=== PATIENT | male | born 1945 | race Caucasian/White ===

== ENCOUNTER 2020-11-30 21:49 | Emergency (ER) | payer OTHER ==
[~2020-11-30] VITALS: Ht 170.2 cm; Wt 76.3 kg
--- NOTE | 2020-11-30 22:08 | NUR ---
ASSUMED CARE OF PT FROM NIKHIL AYALA. PT RESTING IN [facility], MONITORING IN PLACE, [place]VAR[place] AT THIS TIME, ROSE.
--- NOTE | 2020-11-30 23:15 | NUR ---
LAB AT BEDSIDE TO DRAW BLOOD.
[2020-11-30 23:38] LABS: BASOPHILS % (AUTO) 1 % (0-1); EOSINOPHILS % (AUTO) 2 % (1-7); LYMPHOCYTES % (AUTO) 26 % (22-44); MEAN CORPUSCULAR HGB CONC 33.5 g/dL (33.2-36.2); MEAN PLATELET VOLUME 9.4 fL (7.4-10.4); MONOCYTES % (AUTO) 8 % (2-9); NEUTROPHILS % (AUTO) 63 % (42-75); PLATELET COUNT 213 x10^3/uL (130-400); RED BLOOD COUNT 4.07 x10^6/uL (4.38-5.82); RED CELL DISTRIBUTION WIDTH 15.5 % (9.4-14.8)
[2020-11-30 23:44] LABS: MD NO
[2020-11-30 23:50] LABS: ALBUMIN 3.5 g/dL (3.4-5.0); ANION GAP 5 mmol/L (5-15); CHLORIDE 114 mmol/L (98-107); CREATININE 1.41 mg/dL (0.7-1.3)
[2020-11-30 23:53] LABS: TROPONIN I < 0.015 ng/mL (0.000-0.045)
[2020-11-30 23:59] VITALS: BP 165/92
--- NOTE | 2020-12-01 | NUR ---
PT RESTING IN [facility], MONITORING IN PLACE, SON AT BEDSIDE, NADN AT THIS TIME, ROSE.
[2020-12-01 00:03] LABS: INTERNATIONAL NORMALIZED RATIO 0.96 (0.93-1.1); PROTHROMBIN TIME 10.3 Seconds (9.6-11.5)
[2020-12-01] MEDS ORDERED: RIVAROXABAN 20 MG TABLET ONE (00:41)
[2020-12-01] MEDS ORDERED: RIVAROXABAN 20 MG TABLET PO ONE (01:00)
--- NOTE | 2020-12-01 01:20 | NUR ---
PT AND PT'S SON GIVEN WALKER AND TEACHING. ALSO PROVIDED WITH DISCHARGE EDUCATION AND INSTRUCTIONS. PT WHEELED OUT TO CAR WITH WHEELCHAIR AND SON.
[2020-12-03] MEDS ORDERED: CHOL10003 PO (21:06)
[2020-12-03] MEDS ORDERED: ASCO500C10 PO (21:06)
[2020-12-03] MEDS ORDERED: ACET325C6 PO (21:06)
== END 2020-12-01 01:21 | disposition home or self-care (01) ==
LOC: ED 22:55
DX: I82.441 Acute embolism and thrombosis of right tibial vein (principal); M79.661 Pain in right lower leg; I10 Essential (primary) hypertension; F17.210 Nicotine dependence, cigarettes, uncomplicated
CPT/HCPCS: 36415; 80048; 82040; 83880; 84484; 85025; 85610; 85730; 93970; 99284; 99406

== ENCOUNTER 2021-01-11 12:11 | Inpatient (IN) | payer OTHER ==
[~2021-01-11] VITALS: Ht 167.6 cm; Wt 65.9 kg
[~2021-01-11 12:11] MED LIST: ACET325C6 PO; AMLO5TAB4 PO; ASCO500C10 PO; CEPH500T PO; CHOL10003 PO; RIVA15TA PO; RIVA2.5T PO
--- NOTE | 2021-01-11 12:24 | NUR ---
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 PT DENIES SOB/CP OR PAIN. PT CONNECTED TO MONITORS, CALL LIGHT WITHIN REACH.
[2021-01-11] MEDS ORDERED: SODIUM CHLORIDE FLUSH 10ML SYR IVF ONE (13:00)
--- NOTE | 2021-01-11 13:12 | NUR ---
PT HAS BEEN ANSWERING QUESTIONS, AX0 TO SELF. FOLLOWS COMMANDS. ANNE DRAINING TO GRAVITY, PT TOLERATED PROCEDURE WELL. LAXMI CARE PROVIDED
[2021-01-11 13:17] LABS: MICROSCOPIC INDICATED
[2021-01-11 13:22] LABS: AMPHETAMINE SCREEN, URINE Negative (Negative); BARBITURATE SCREEN, URINE Negative (Negative); BENZODIAZEPINE SCREEN, URINE Negative (Negative); CANNABINOID SCREEN, URINE Negative (Negative); COCAINE SCREEN, URINE Negative (Negative); METHADONE SCREEN, URINE Negative (Negative); OPIATE SCREEN, URINE Negative (Negative)
[2021-01-11 13:45] LABS: BASOPHILS % (AUTO) 0 % (0-1); EOSINOPHILS % (AUTO) 0 % (1-7); LYMPHOCYTES % (AUTO) 4 % (22-44); MEAN CORPUSCULAR HEMOGLOBIN 30.8 pg (27.5-34.5); MEAN CORPUSCULAR HGB CONC 32.6 g/dL (33.2-36.2); MEAN PLATELET VOLUME 10.6 fL (7.4-10.4); MONOCYTES % (AUTO) 4 % (2-9); NEUTROPHILS % (AUTO) 92 % (42-75); PLATELET COUNT 127 x10^3/uL (130-400); RED BLOOD COUNT 3.28 x10^6/uL (4.38-5.82); RED CELL DISTRIBUTION WIDTH 16.5 % (9.4-14.8)
--- NOTE | 2021-01-11 13:53 | NUR ---
HAWA TRIVEDI: [phone] Addendum: 01/11/21 at 1647 by [email or web address] HAWA TRIVEDI/TAMICA TRIVEDI: [phone] - [place] ([employer])
[2021-01-11 14:01] LABS: ALANINE AMINOTRANSFERASE 208 U/L (12-78); ALBUMIN 3.4 g/dL (3.4-5.0); ANION GAP 5 mmol/L (5-15); CALCIUM 10.1 mg/dL (8.5-10.1); CHLORIDE 116 mmol/L (98-107); CREATININE 1.38 mg/dL (0.7-1.3); INTERNATIONAL NORMALIZED RATIO 1.04 (0.93-1.1); PROTHROMBIN TIME 11.1 Seconds (9.6-11.5)
[2021-01-11 14:12] LABS: ALKALINE PHOSPHATASE 247 U/L (45-117); BILIRUBIN,TOTAL 0.2 mg/dL (0.2-1.0); TOTAL PROTEIN 7.5 g/dL (6.4-8.2)
[2021-01-11] MEDS ORDERED: DEXTROSE 50%, 50ML SYRINGE ONE ×3 (14:49→19:04)
[2021-01-11] MEDS ORDERED: CEFTRIAXONE 1,000 MG in DEXTROSE 5% 50 ML IVPB ONE (15:00)
[2021-01-11] MEDS ORDERED: DEXTROSE 50%, 50ML SYRINGE IVPush ONE (15:00)
--- NOTE | 2021-01-11 15:05 | NUR ---
PT TO CT
--- NOTE | 2021-01-11 15:32 | NUR ---
PT BACK FROM CT
--- NOTE | 2021-01-11 15:36 | NUR ---
PT LAYING ON GURNEY, WARMING BLANKET IN PLACE. MONITORS IN PLACE. ANNE DRAINING TO GRAVITY. PT DENIES PAIN. CALL LIGHT WITHIN REACH
[2021-01-11] MEDS ORDERED: TAMS-11 PO (15:53)
[2021-01-11] MEDS ORDERED: AMLO-150 PO (16:02)
[2021-01-11] MEDS ORDERED: DEXTROSE 5% 1,000 ML IV ONE (16:30)
[2021-01-11] MEDS ORDERED: D5%-0.9% NACL 1,000 ML IV SCH (16:30)
--- NOTE | 2021-01-11 16:40 | NUR ---
PT CONTINUES LAYING ON [place]VAR[place]O MARIA/SUSANNAH. WARMING MEASURES AND MONITORS IN PLACE. CALL LIGHT WITHIN REACH. PT DENIES PAIN
[2021-01-11] MEDS ORDERED: POLYETHYLENE GLYCOL 17 GM PACKET PO PRN (17:00)
[2021-01-11] MEDS ORDERED: BISACODYL 10 MG SUPP PR PRN (17:00)
[2021-01-11] MEDS ORDERED: hydrALAzine 20 MG/ML, 1ML IVPush PRN (17:00)
[2021-01-11] MEDS ORDERED: DEXTROSE 5% 1,000 ML IV SCH (17:00)
[2021-01-11] MEDS ORDERED: GLUCAGON 1 MG IM PRN (17:00)
[2021-01-11] MEDS ORDERED: ONDANSETRON ODT 4 MG PO PRN (17:00)
[2021-01-11] MEDS ORDERED: DEXTROSE 4 GM TAB.CHEW PO PRN (17:00)
[2021-01-11] MEDS ORDERED: ONDANSETRON 2MG/ML, 2ML IVPush PRN (17:00)
[2021-01-11] MEDS ORDERED: LABETALOL 5MG/ML, 20ML IVPush PRN (17:00)
[2021-01-11] MEDS: DEXTROSE 50%, 50ML SYRINGE IVPush PRN ×3 (17:41→21:02)
--- NOTE | 2021-01-11 17:44 | NUR ---
US CAME TO BS, WILL COMPLETE AFTER PT TRANSFERRED TO FLOOR FOR EASIER ACCESS TO SITE
--- NOTE | 2021-01-11 18:02 | NUR ---
[facility] ([facility]) NOTIFIED OF RECENT POC BG & ADMIN OF PRN D50, PER [facility]: PT OK TO TRANSFER WITH ANNE CATH REMAINING IN PLACE & OK TO REMOVE BEARPAW WARMER FOR TRANSPORT.
[2021-01-11 18:07] LABS: ANION GAP 5 mmol/L (5-15); CALCIUM 9.5 mg/dL (8.5-10.1); CHLORIDE 118 mmol/L (98-107); CREATININE 1.39 mg/dL (0.7-1.3)
[2021-01-11 18:11] LABS: TROPONIN I < 0.015 ng/mL (0.000-0.045)
--- NOTE | 2021-01-11 18:19 | NUR ---
Pt to be admitted to [facility], room 484-2. Report called to JANET.
[2021-01-11 18:55] VITALS: BP 111/59
[2021-01-11 20:21] VITALS: BP 102/63
[2021-01-11] MEDS: SODIUM CHLORIDE FLUSH 10ML SYR IVF SCH (21:01)
[2021-01-11 23:39] LABS: TROPONIN I < 0.015 ng/mL (0.000-0.045)
[2021-01-12 02:03] VITALS: BP 104/59
[2021-01-12] MEDS ORDERED: D5%-0.9% NACL 1,000 ML IV SCH (02:30)
[2021-01-12 05:02] LABS: BASOPHILS % (AUTO) 1 % (0-1); EOSINOPHILS % (AUTO) 0 % (1-7); LYMPHOCYTES % (AUTO) 8 % (22-44); MEAN CORPUSCULAR HEMOGLOBIN 31.8 pg (27.5-34.5); MEAN PLATELET VOLUME 10.6 fL (7.4-10.4); MONOCYTES % (AUTO) 8 % (2-9); NEUTROPHILS % (AUTO) 84 % (42-75); PLATELET COUNT 102 x10^3/uL (130-400); RED BLOOD COUNT 2.66 x10^6/uL (4.38-5.82); RED CELL DISTRIBUTION WIDTH 16.4 % (9.4-14.8)
[2021-01-12 05:13] LABS: CHLORIDE 122 mmol/L (98-107)
[2021-01-12 05:20] LABS: ALANINE AMINOTRANSFERASE 140 U/L (12-78); ALBUMIN 2.6 g/dL (3.4-5.0); ALKALINE PHOSPHATASE 182 U/L (45-117); ANION GAP 3 mmol/L (5-15); BILIRUBIN,TOTAL 0.2 mg/dL (0.2-1.0); CALCIUM 9.1 mg/dL (8.5-10.1); CREATININE 1.49 mg/dL (0.7-1.3); TOTAL PROTEIN 6.1 g/dL (6.4-8.2)
[2021-01-12 07:27] VITALS: BP 99/56
[2021-01-12] MEDS: DEXTROSE 5% 1,000 ML IV SCH ×2 (08:20→17:10)
[2021-01-12] MEDS: CEFTRIAXONE 2 GM in DEXTROSE 5% 50 ML IVPB SCH (08:20)
[2021-01-12] MEDS: SODIUM CHLORIDE FLUSH 10ML SYR IVF SCH ×2 (08:21→21:07)
[2021-01-12] MEDS: SENNA/DOCUSATE TABLET PO SCH (09:00)
[2021-01-12 12:10] VITALS: BP 118/69
[2021-01-12] MEDS ORDERED: CEFTRIAXONE 1,000 MG in DEXTROSE 5% 50 ML IVPB SCH (14:00)
[2021-01-12 18:27] VITALS: BP 120/68
[2021-01-13 00:23] VITALS: BP 139/76
[2021-01-13] MEDS: DEXTROSE 5% 1,000 ML IV SCH (01:31)
[2021-01-13 06:02] LABS: BASOPHILS % (AUTO) 0 % (0-1); EOSINOPHILS % (AUTO) 1 % (1-7); LYMPHOCYTES % (AUTO) 15 % (22-44); MEAN CORPUSCULAR HEMOGLOBIN 31.3 pg (27.5-34.5); MEAN CORPUSCULAR HGB CONC 33.3 g/dL (33.2-36.2); MONOCYTES % (AUTO) 9 % (2-9); NEUTROPHILS % (AUTO) 74 % (42-75); PLATELET COUNT 84 x10^3/uL (130-400); RED BLOOD COUNT 2.63 x10^6/uL (4.38-5.82)
[2021-01-13 06:04] LABS: ALANINE AMINOTRANSFERASE 149 U/L (12-78); ALBUMIN 2.5 g/dL (3.4-5.0); ANION GAP 6 mmol/L (5-15); CALCIUM 9.1 mg/dL (8.5-10.1); CHLORIDE 116 mmol/L (98-107)
[2021-01-13 06:07] LABS: ALKALINE PHOSPHATASE 190 U/L (45-117); BILIRUBIN,TOTAL 0.2 mg/dL (0.2-1.0); CREATININE 1.44 mg/dL (0.7-1.3); TOTAL PROTEIN 5.9 g/dL (6.4-8.2)
[2021-01-13 06:35] VITALS: BP 133/71
[2021-01-13] MEDS: CEFTRIAXONE 2 GM in DEXTROSE 5% 50 ML IVPB SCH (08:06)
[2021-01-13] MEDS: SODIUM CHLORIDE FLUSH 10ML SYR IVF SCH ×2 (08:06→21:00)
[2021-01-13] MEDS: SENNA/DOCUSATE TABLET PO SCH (08:07)
[2021-01-13 12:09] VITALS: BP 133/77
[2021-01-13 19:08] VITALS: BP 131/72
[2021-01-14 00:12] VITALS: BP 147/78
[2021-01-14 04:54] LABS: MEAN CORPUSCULAR HEMOGLOBIN 31.8 pg (27.5-34.5); MEAN PLATELET VOLUME 10.4 fL (7.4-10.4); PLATELET COUNT 101 x10^3/uL (130-400); RED BLOOD COUNT 2.71 x10^6/uL (4.38-5.82); RED CELL DISTRIBUTION WIDTH 15.8 % (9.4-14.8)
[2021-01-14 05:06] LABS: ALBUMIN 2.7 g/dL (3.4-5.0); ANION GAP 7 mmol/L (5-15); CALCIUM 9.6 mg/dL (8.5-10.1); CHLORIDE 112 mmol/L (98-107)
[2021-01-14 05:09] LABS: ALANINE AMINOTRANSFERASE 141 U/L (12-78); ALKALINE PHOSPHATASE 215 U/L (45-117); BILIRUBIN,TOTAL 0.3 mg/dL (0.2-1.0); CREATININE 1.34 mg/dL (0.7-1.3); TOTAL PROTEIN 6.4 g/dL (6.4-8.2)
[2021-01-14 05:39] LABS: ANISOCYTOSIS 1+; BAND#(MANUAL) 0.29 x10^3/uL; BANDS%(MANUAL) 4 % (0-7); HYPOCHROMIA 1+; LYMPH#(MANUAL) 0.86 x10^3/uL (1-3.4); LYMPHS% (MANUAL) 12 % (22-44); MONOS% (MANUAL) 7 % (2-9); POLYCHROMASIA 1+; SEG#(MANUAL) 5.54 x10^3/uL (1.8-6.8); SEGS% (MANUAL) 77 % (42-75)
[2021-01-14 05:40] LABS: <PLATELET ESTIMATE> DECREASED; <PLT MORPHOLOGY> NORMAL PLT MORPH; OVALOCYTES 1+
[2021-01-14 06:26] VITALS: BP 157/84
[2021-01-14] MEDS: DEXTROSE 5% 1,000 ML IV SCH (08:34)
[2021-01-14] MEDS: SENNA/DOCUSATE TABLET PO SCH (08:35)
[2021-01-14] MEDS: CEFTRIAXONE 2 GM in DEXTROSE 5% 50 ML IVPB SCH (08:35)
[2021-01-14] MEDS: SODIUM CHLORIDE FLUSH 10ML SYR IVF SCH ×2 (08:35→21:00)
[2021-01-14 12:08] VITALS: BP 142/88
[2021-01-14] MEDS: TAMSULOSIN 0.4 MG CAP.ER.24H PO SCH (12:45)
[2021-01-14] MEDS: AMLODIPINE 5 MG TABLET PO SCH (12:45)
[2021-01-14] MEDS: ACETAMINOPHEN 325 MG TABLET PO PRN (12:45)
[2021-01-14 19:23] VITALS: BP 139/77
[2021-01-15 01:07] VITALS: BP 138/60
[2021-01-15] MEDS: DEXTROSE 5% 1,000 ML IV SCH (05:41)
[2021-01-15 05:50] LABS: MEAN CORPUSCULAR HEMOGLOBIN 31.3 pg (27.5-34.5); MEAN CORPUSCULAR HGB CONC 33.7 g/dL (33.2-36.2); MEAN PLATELET VOLUME 10.4 fL (7.4-10.4); PLATELET COUNT 118 x10^3/uL (130-400); RED CELL DISTRIBUTION WIDTH 15.8 % (9.4-14.8)
[2021-01-15 06:05] LABS: CHLORIDE 113 mmol/L (98-107)
[2021-01-15 06:17] LABS: ALANINE AMINOTRANSFERASE 113 U/L (12-78); ALBUMIN 2.8 g/dL (3.4-5.0); ALKALINE PHOSPHATASE 214 U/L (45-117); ANION GAP 7 mmol/L (5-15); BILIRUBIN,TOTAL 0.3 mg/dL (0.2-1.0); CALCIUM 9.5 mg/dL (8.5-10.1); CREATININE 1.43 mg/dL (0.7-1.3); TOTAL PROTEIN 6.6 g/dL (6.4-8.2)
[2021-01-15 06:31] LABS: BAND#(MANUAL) 0.57 x10^3/uL; BANDS%(MANUAL) 7 % (0-7); EOS#(MANUAL) 0.24 x10^3/uL (0.0-0.4); EOS% (MANUAL) 3 % (1-7); LYMPH#(MANUAL) 0.65 x10^3/uL (1-3.4); LYMPHS% (MANUAL) 8 % (22-44); MONOS#(MANUAL) 0.24 x10^3/uL (0.3-2.7); MONOS% (MANUAL) 3 % (2-9); SEGS% (MANUAL) 79 % (42-75)
[2021-01-15 06:32] LABS: ANISOCYTOSIS 1+; OVALOCYTES 1+; TARGET CELLS 1+
[2021-01-15 06:33] LABS: <PLATELET ESTIMATE> DECREASED; <PLT MORPHOLOGY> NORMAL PLT MORPH
[2021-01-15 06:35] VITALS: BP 120/67
[2021-01-15] MEDS: CEFTRIAXONE 2 GM in DEXTROSE 5% 50 ML IVPB SCH (08:03)
[2021-01-15] MEDS: ACETAMINOPHEN 325 MG TABLET PO PRN (08:04)
[2021-01-15] MEDS: SENNA/DOCUSATE TABLET PO SCH (08:04)
[2021-01-15] MEDS: AMLODIPINE 5 MG TABLET PO SCH (08:04)
[2021-01-15] MEDS: SODIUM CHLORIDE FLUSH 10ML SYR IVF SCH ×2 (08:04→21:00)
[2021-01-15] MEDS: TAMSULOSIN 0.4 MG CAP.ER.24H PO SCH (08:10)
[2021-01-15 10:24] VITALS: BP 128/70
[2021-01-15] MEDS ORDERED: THIAMINE 100 MG in SODIUM CHLORIDE 0.9% 50 ML IV SCH (11:30)
[2021-01-15] MEDS ORDERED: LORazepam 2 MG/ML, 1ML IVPush ONE ×2 (12:00→21:00)
[2021-01-15] MEDS ORDERED: LORazepam 2 MG/ML, 1ML ONE ×2 (12:02→20:50)
[2021-01-15 12:32] VITALS: BP 122/68
[2021-01-15] MEDS ORDERED: GADOTERATE 7.5 MMOL/15ML SYR ONE (18:07)
[2021-01-15 19:24] VITALS: BP 144/73
[2021-01-15] MEDS ORDERED: PHARMACOKINETIC MONITORING MC PRN (20:30)
[2021-01-15] MEDS ORDERED: PHARMACY MAY ADJ FOR RENAL FX MC PRN (20:30)
[2021-01-15] MEDS ORDERED: VANCOMYCIN PER PHARMACY MC PRN (20:30)
[2021-01-15] MEDS ORDERED: LORazepam 1MG TABLET ONE (20:48)
[2021-01-15] MEDS ORDERED: VANCOMYCIN 1,800 MG in SODIUM CHLORIDE 0.9% 250 ML IV ONE (21:00)
[2021-01-15] MEDS ORDERED: LORazepam 1MG TABLET PO PRN (21:00)
[2021-01-15] MEDS ORDERED: GADOTERATE 10 MMOL/20ML SYR ONE (22:37)
[2021-01-16 00:33] VITALS: BP 101/60
[2021-01-16] MEDS ORDERED: DEXAMETHASONE 4 MG/ML, 1ML IVPush ONE (01:00)
[2021-01-16] MEDS: AMPICILLIN/SULBACTAM 3 GM in SODIUM CHLORIDE 0.9% 100 ML IV SCH ×2 (01:22→07:30)
[2021-01-16 05:43] LABS: MEAN CORPUSCULAR HEMOGLOBIN 31.7 pg (27.5-34.5); MEAN CORPUSCULAR HGB CONC 33.6 g/dL (33.2-36.2); MEAN PLATELET VOLUME 10.4 fL (7.4-10.4); PLATELET COUNT 116 x10^3/uL (130-400); RED BLOOD COUNT 2.56 x10^6/uL (4.38-5.82); RED CELL DISTRIBUTION WIDTH 15.7 % (9.4-14.8)
[2021-01-16] MEDS ORDERED: BUPIVACAINE/PF 0.5% ONE (05:46)
[2021-01-16] MEDS ORDERED: BACITRACIN 50,000 UNIT ONE (05:46)
[2021-01-16] MEDS ORDERED: EPINEPHRINE 1 MG/ML, 1ML ONE (05:46)
[2021-01-16 05:58] LABS: CHLORIDE 112 mmol/L (98-107)
[2021-01-16 06:06] LABS: ALANINE AMINOTRANSFERASE 91 U/L (12-78); ALBUMIN 2.5 g/dL (3.4-5.0); ALKALINE PHOSPHATASE 188 U/L (45-117); ANION GAP 7 mmol/L (5-15); BILIRUBIN,TOTAL 0.3 mg/dL (0.2-1.0); CREATININE 1.18 mg/dL (0.7-1.3)
[2021-01-16] MEDS ORDERED: FENTANYL PF 250 MCG/5ML ONE (06:14)
[2021-01-16 06:16] LABS: BAND#(MANUAL) 0.89 x10^3/uL; BANDS%(MANUAL) 10 % (0-7); EOS#(MANUAL) 0.09 x10^3/uL (0.0-0.4); EOS% (MANUAL) 1 % (1-7); LYMPH#(MANUAL) 0.98 x10^3/uL (1-3.4); LYMPHS% (MANUAL) 11 % (22-44); MONOS#(MANUAL) 0.09 x10^3/uL (0.3-2.7); MONOS% (MANUAL) 1 % (2-9); MYELOCYTES# (MANUAL) 0.09 x10^3/uL (0-0); MYELOCYTES% (MANUAL) 1 % (0-0); SEG#(MANUAL) 6.76 x10^3/uL (1.8-6.8); SEGS% (MANUAL) 76 % (42-75)
[2021-01-16 06:17] LABS: <PLATELET ESTIMATE> DECREASED; <PLT MORPHOLOGY> NORMAL PLT MORPH; ANISOCYTOSIS 1+; HYPOCHROMIA 1+; OVALOCYTES 1+; TARGET CELLS 1+
[2021-01-16] MEDS ORDERED: BUPIVACAINE/PF 0.5% INFIL ONE (06:53)
[2021-01-16] MEDS ORDERED: PROPOFOL 10 MG/ML, 20ML ONE (06:54)
[2021-01-16] MEDS ORDERED: ONDANSETRON 2MG/ML, 2ML ONE ×2 (06:54→07:12)
[2021-01-16] MEDS ORDERED: ROCURONIUM 10MG/ML,5ML ONE ×2 (06:54)
[2021-01-16] MEDS ORDERED: DEXAMETHASONE 4 MG/ML, 1ML ONE ×2 (06:54)
[2021-01-16] MEDS ORDERED: PHENYLEPHRINE 10 MG/ML ONE (07:12)
[2021-01-16] MEDS ORDERED: NEOSTIGMINE 1 MG/ML, 10ML ONE ×2 (07:21)
[2021-01-16] MEDS ORDERED: GLYCOPYRROLATE 0.2MG/1ML, 5ML ONE (07:22)
[2021-01-16] MEDS ORDERED: VANCOMYCIN 1,000 MG ONE (07:35)
[2021-01-16] MEDS ORDERED: BACITRACIN OINT 500U/GM, 15 GM ONE (07:35)
[2021-01-16] MEDS ORDERED: SUGAMMADEX 200 MG/2 ML IVPush ONE (08:16)
[2021-01-16] MEDS ORDERED: HYDROmorphone 1 MG/ML, 1ML INJ IVPush PRN (08:30)
[2021-01-16] MEDS ORDERED: LABETALOL 5MG/ML, 20ML IV PRN (08:30)
[2021-01-16] MEDS ORDERED: PROMETHAZINE 25 MG/ML, 1ML IVPush PRN (08:30)
[2021-01-16] MEDS ORDERED: ONDANSETRON 2MG/ML, 2ML IVPush PRN (08:30)
[2021-01-16] MEDS ORDERED: OXYcodone 5 MG/5 ML ORAL.SOL UDC PO PRN (08:30)
[2021-01-16] MEDS ORDERED: ACETAMINOPHEN 325 MG TABLET PO PRN (08:30)
[2021-01-16] MEDS ORDERED: FENTANYL PF 100 MCG/2ML IV PRN (08:30)
[2021-01-16] MEDS ORDERED: hydrALAzine 20 MG/ML, 1ML IV PRN (08:30)
[2021-01-16] MEDS ORDERED: EPHEDRINE 50 MG/ML, 1ML IVPush PRN (08:30)
[2021-01-16] MEDS ORDERED: PHENYLEPHRINE 50 MG in SODIUM CHLORIDE 0.9% 245 ML IV PRN (09:00)
[2021-01-16] MEDS: AMLODIPINE 5 MG TABLET PO SCH (09:00)
[2021-01-16] MEDS: TAMSULOSIN 0.4 MG CAP.ER.24H PO SCH (11:57)
[2021-01-16] MEDS: THIAMINE 100 MG in DEXTROSE 5% 50 ML IV SCH (11:57)
[2021-01-16] MEDS: SENNA/DOCUSATE TABLET PO SCH (11:58)
[2021-01-16] MEDS: SODIUM CHLORIDE FLUSH 10ML SYR IVF SCH ×4 (11:58→21:00)
[2021-01-16] MEDS ORDERED: ATROPINE SYRINGE 0.1 MG/ML, 10ML ONE (11:59)
[2021-01-16] MEDS ORDERED: OXYcodone/APAP 5/325MG TABLET PO PRN (12:00)
[2021-01-16] MEDS ORDERED: DEXTROSE 50%, 50ML SYRINGE IVPush PRN (12:00)
[2021-01-16] MEDS ORDERED: MAGNESIUM HYDROXIDE 8%, 30ML UDC PO PRN (12:00)
[2021-01-16] MEDS ORDERED: DEXTROSE 4 GM TAB.CHEW PO PRN (12:00)
[2021-01-16] MEDS ORDERED: ACETAMINOPHEN 650 MG SUPP PR PRN (12:00)
[2021-01-16] MEDS ORDERED: DIPHENHYDRAMINE 50 MG/ML, 1ML IM PRN (12:00)
[2021-01-16] MEDS: LABETALOL 5MG/ML, 20ML IV SCH ×2 (12:00→20:00)
[2021-01-16] MEDS ORDERED: ONDANSETRON 2MG/ML, 2ML IV PRN (12:00)
[2021-01-16] MEDS ORDERED: GLUCAGON 1 MG IM PRN (12:00)
[2021-01-16] MEDS ORDERED: BISACODYL 10 MG SUPP PR PRN (12:00)
[2021-01-16] MEDS ORDERED: CEFAZOLIN 2,000 MG in SODIUM CHLORIDE 0.9% 50 ML IV SCH (12:00)
[2021-01-16] MEDS ORDERED: VANCOMYCIN PER PHARMACY MC SCH (12:00)
[2021-01-16] MEDS ORDERED: DIPHENHYDRAMINE 50 MG/ML, 1ML IV PRN (12:00)
[2021-01-16] MEDS: D5%-0.9% NACL+KCL 20MEQ 1,000 ML IV SCH ×2 (12:19→16:00)
[2021-01-16] MEDS ORDERED: HYDROmorphone 2 MG/ML, 1ML IV PRN (12:30)
[2021-01-16] MEDS ORDERED: METHOCARBAMOL 1,000 MG in DEXTROSE 5% 100 ML IV PRN (12:30)
[2021-01-16] MEDS: CEFAZOLIN 2,000 MG in SODIUM CHLORIDE 0.9% 50 ML IV SCH ×2 (12:31→20:35)
[2021-01-16] MEDS: PHENYLEPHRINE 50 MG in SODIUM CHLORIDE 0.9% 245 ML IV PRN (17:14)
[2021-01-16] MEDS: HYDROcodone/APAP 5/325 TABLET PO PRN (20:41)
[2021-01-16] MEDS ORDERED: VANCOMYCIN 1,400 MG in SODIUM CHLORIDE 0.9% 250 ML IV SCH (21:00)
[2021-01-17] MEDS: D5%-0.9% NACL+KCL 20MEQ 1,000 ML IV SCH ×2 (02:14→14:40)
[2021-01-17] MEDS ORDERED: VANCOMYCIN 1,400 MG in SODIUM CHLORIDE 0.9% 250 ML IV SCH (03:00)
[2021-01-17] MEDS: LABETALOL 5MG/ML, 20ML IV SCH (04:00)
[2021-01-17] MEDS: CEFAZOLIN 2,000 MG in SODIUM CHLORIDE 0.9% 50 ML IV SCH ×3 (04:24→20:18)
[2021-01-17] MEDS: PHENYLEPHRINE 50 MG in SODIUM CHLORIDE 0.9% 245 ML IV PRN ×2 (04:24→11:54)
[2021-01-17] MEDS: HYDROcodone/APAP 5/325 TABLET PO PRN ×2 (04:43→20:34)
[2021-01-17 04:53] LABS: CHLORIDE 113 mmol/L (98-107)
[2021-01-17 04:59] LABS: ALANINE AMINOTRANSFERASE 55 U/L (12-78); ALBUMIN 2.3 g/dL (3.4-5.0); ALKALINE PHOSPHATASE 154 U/L (45-117); ANION GAP 6 mmol/L (5-15); BILIRUBIN,TOTAL 0.1 mg/dL (0.2-1.0); CALCIUM 8.4 mg/dL (8.5-10.1); CREATININE 1.34 mg/dL (0.7-1.3); TOTAL PROTEIN 5.3 g/dL (6.4-8.2)
[2021-01-17 05:36] LABS: MEAN CORPUSCULAR HEMOGLOBIN 30.8 pg (27.5-34.5); MEAN CORPUSCULAR HGB CONC 32.8 g/dL (33.2-36.2); MEAN PLATELET VOLUME 11.5 fL (7.4-10.4); PLATELET COUNT 150 x10^3/uL (130-400); RED BLOOD COUNT 2.18 x10^6/uL (4.38-5.82); RED CELL DISTRIBUTION WIDTH 16.1 % (9.4-14.8)
[2021-01-17 06:19] LABS: BAND#(MANUAL) 2.26 x10^3/uL; BANDS%(MANUAL) 17 % (0-7); LYMPH#(MANUAL) 0.53 x10^3/uL (1-3.4); LYMPHS% (MANUAL) 4 % (22-44); METAMYELOCYTES# (MANUAL) 0.13 x10^3/uL (0-0); METAMYELOCYTES% (MANUAL) 1 % (0-1); MONOS#(MANUAL) 0.67 x10^3/uL (0.3-2.7); MONOS% (MANUAL) 5 % (2-9); SEG#(MANUAL) 9.71 x10^3/uL (1.8-6.8); SEGS% (MANUAL) 73 % (42-75)
[2021-01-17 06:23] LABS: ANISOCYTOSIS 1+; HYPOCHROMIA 1+
[2021-01-17 06:25] LABS: OVALOCYTES 1+
[2021-01-17 06:26] LABS: <PLATELET ESTIMATE> ADEQUATE; <PLT MORPHOLOGY> NORMAL PLT MORPH
[2021-01-17] MEDS ORDERED: ENOXAPARIN 40 MG/0.4 ML SQ SCH (08:00)
[2021-01-17] MEDS ORDERED: COSYNTROPIN 0.25 MG IV ONE (08:05)
[2021-01-17] MEDS: SENNA/DOCUSATE TABLET PO SCH (09:00)
[2021-01-17] MEDS: TAMSULOSIN 0.4 MG CAP.ER.24H PO SCH (09:00)
[2021-01-17] MEDS: SODIUM CHLORIDE FLUSH 10ML SYR IVF SCH ×2 (09:09→20:18)
[2021-01-17] MEDS: THIAMINE 100 MG in DEXTROSE 5% 50 ML IV SCH (09:09)
[2021-01-17 10:24] VITALS: BP 134/59
[2021-01-17 10:38] LABS: HCT (SEDRATE) 20.5 % (39.2-51.8)
[2021-01-17 10:44] VITALS: BP 137/58
[2021-01-17 11:56] VITALS: BP 140/62
[2021-01-17] MEDS ORDERED: NALOXONE 1 MG/ML, 2ML ONE (13:06)
[2021-01-17] MEDS ORDERED: FLUMAZENIL 0.1 MG/1 ML, 5ML ONE (13:06)
[2021-01-17] MEDS ORDERED: FENTANYL PF 100 MCG/2ML ONE (13:06)
[2021-01-17] MEDS ORDERED: MIDAZOLAM 1 MG/ML, 5ML ONE ×2 (13:06)
[2021-01-17] MEDS ORDERED: ATROPINE SYRINGE 0.1 MG/ML, 10ML ONE (13:08)
[2021-01-17] MEDS ORDERED: OMNIPAQUE 350 MG/ML, 100ML BOTTLE ONE (13:50)
[2021-01-17] MEDS ORDERED: LACTATED RINGERS 1,000 ML IVBOLUS ONE ×2 (15:00)
[2021-01-17] MEDS: ACETAMINOPHEN 325 MG TABLET PO PRN (20:34)
[2021-01-18] MEDS: PHENYLEPHRINE 50 MG in SODIUM CHLORIDE 0.9% 245 ML IV PRN ×2 (00:06→17:51)
[2021-01-18] MEDS: D5%-0.9% NACL+KCL 20MEQ 1,000 ML IV SCH (01:31)
[2021-01-18] MEDS: CEFAZOLIN 2,000 MG in SODIUM CHLORIDE 0.9% 50 ML IV SCH ×3 (05:09→21:00)
[2021-01-18 05:23] LABS: MEAN CORPUSCULAR HEMOGLOBIN 30.6 pg (27.5-34.5); MEAN PLATELET VOLUME 10.7 fL (7.4-10.4); PLATELET COUNT 187 x10^3/uL (130-400); RED BLOOD COUNT 2.35 x10^6/uL (4.38-5.82); RED CELL DISTRIBUTION WIDTH 16.7 % (9.4-14.8)
[2021-01-18 05:26] LABS: CHLORIDE 118 mmol/L (98-107)
[2021-01-18 05:31] LABS: ANION GAP 6 mmol/L (5-15); CALCIUM 8.7 mg/dL (8.5-10.1); CREATININE 1.48 mg/dL (0.7-1.3)
[2021-01-18 06:15] LABS: BANDS%(MANUAL) 6 % (0-7); LYMPH#(MANUAL) 1.17 x10^3/uL (1-3.4); LYMPHS% (MANUAL) 10 % (22-44); METAMYELOCYTES# (MANUAL) 0.23 x10^3/uL (0-0); METAMYELOCYTES% (MANUAL) 2 % (0-1); MONOS#(MANUAL) 0.94 x10^3/uL (0.3-2.7); MONOS% (MANUAL) 8 % (2-9); SEG#(MANUAL) 8.66 x10^3/uL (1.8-6.8); SEGS% (MANUAL) 74 % (42-75)
[2021-01-18 06:16] LABS: ANISOCYTOSIS 1+; HYPOCHROMIA 1+; OVALOCYTES 1+; POLYCHROMASIA 1+
[2021-01-18 06:19] LABS: <PLATELET ESTIMATE> ADEQUATE; <PLT MORPHOLOGY> NORMAL PLT MORPH
[2021-01-18] MEDS: SODIUM CHLORIDE FLUSH 10ML SYR IVF SCH ×2 (09:21→21:00)
[2021-01-18] MEDS: THIAMINE 100 MG in DEXTROSE 5% 50 ML IV SCH (09:21)
[2021-01-18] MEDS: TAMSULOSIN 0.4 MG CAP.ER.24H PO SCH (09:21)
[2021-01-18] MEDS: SENNA/DOCUSATE TABLET PO SCH (09:21)
[2021-01-18] MEDS: HYDROcodone/APAP 5/325 TABLET PO PRN ×3 (11:21→18:23)
[2021-01-18] MEDS: METHOCARBAMOL 750 MG TABLET PO PRN (19:29)
[2021-01-19] VITALS (11 sets, daily range): BP systolic 105–146; BP diastolic 52–84
[2021-01-19] MEDS: CEFAZOLIN 2,000 MG in SODIUM CHLORIDE 0.9% 50 ML IV SCH ×3 (06:12→21:56)
[2021-01-19] MEDS: METHOCARBAMOL 750 MG TABLET PO PRN ×2 (06:19→18:18)
[2021-01-19] MEDS: HYDROcodone/APAP 5/325 TABLET PO PRN ×2 (06:20→14:05)
[2021-01-19] MEDS: ACETAMINOPHEN 325 MG TABLET PO PRN (06:20)
[2021-01-19 06:35] LABS: MEAN CORPUSCULAR HEMOGLOBIN 30.2 pg (27.5-34.5); MEAN CORPUSCULAR HGB CONC 32.6 g/dL (33.2-36.2); MEAN PLATELET VOLUME 9.7 fL (7.4-10.4); PLATELET COUNT 231 x10^3/uL (130-400); RED BLOOD COUNT 2.29 x10^6/uL (4.38-5.82); RED CELL DISTRIBUTION WIDTH 16.9 % (9.4-14.8)
[2021-01-19 06:47] LABS: ANION GAP 6 mmol/L (5-15); CALCIUM 8.5 mg/dL (8.5-10.1); CHLORIDE 117 mmol/L (98-107); CREATININE 1.49 mg/dL (0.7-1.3)
[2021-01-19 07:03] LABS: ANISOCYTOSIS 1+; BAND#(MANUAL) 0.33 x10^3/uL; BANDS%(MANUAL) 3 % (0-7); EOS#(MANUAL) 0.11 x10^3/uL (0.0-0.4); EOS% (MANUAL) 1 % (1-7); HYPOCHROMIA 1+; LYMPH#(MANUAL) 1.11 x10^3/uL (1-3.4); LYMPHS% (MANUAL) 10 % (22-44); METAMYELOCYTES# (MANUAL) 0.22 x10^3/uL (0-0); METAMYELOCYTES% (MANUAL) 2 % (0-1); MONOS#(MANUAL) 0.44 x10^3/uL (0.3-2.7); MONOS% (MANUAL) 4 % (2-9); MYELOCYTES# (MANUAL) 0.11 x10^3/uL (0-0); MYELOCYTES% (MANUAL) 1 % (0-0); POLYCHROMASIA 1+; SEG#(MANUAL) 8.77 x10^3/uL (1.8-6.8); SEGS% (MANUAL) 79 % (42-75)
[2021-01-19 07:04] LABS: OVALOCYTES 1+
[2021-01-19 07:05] LABS: <PLATELET ESTIMATE> ADEQUATE; <PLT MORPHOLOGY> NORMAL PLT MORPH
[2021-01-19] MEDS: TAMSULOSIN 0.4 MG CAP.ER.24H PO SCH (09:19)
[2021-01-19] MEDS: THIAMINE 100MG TABLET PO SCH (09:19)
[2021-01-19] MEDS: SODIUM CHLORIDE FLUSH 10ML SYR IVF SCH ×2 (09:19→21:25)
[2021-01-19] MEDS: SENNA/DOCUSATE TABLET PO SCH (09:19)
[2021-01-20] MEDS: METHOCARBAMOL 750 MG TABLET PO PRN ×2 (02:06→19:47)
[2021-01-20 05:03] LABS: MEAN CORPUSCULAR HEMOGLOBIN 31.3 pg (27.5-34.5); MEAN CORPUSCULAR HGB CONC 34.1 g/dL (33.2-36.2); MEAN PLATELET VOLUME 9.6 fL (7.4-10.4); PLATELET COUNT 276 x10^3/uL (130-400); RED BLOOD COUNT 2.64 x10^6/uL (4.38-5.82); RED CELL DISTRIBUTION WIDTH 16.1 % (9.4-14.8)
[2021-01-20 05:08] LABS: ANION GAP 3 mmol/L (5-15); CALCIUM 8.4 mg/dL (8.5-10.1); CHLORIDE 114 mmol/L (98-107); CREATININE 1.35 mg/dL (0.7-1.3)
[2021-01-20] MEDS: CEFAZOLIN 2,000 MG in SODIUM CHLORIDE 0.9% 50 ML IV SCH ×3 (05:52→21:59)
[2021-01-20 06:06] LABS: ANISOCYTOSIS 1+; BAND#(MANUAL) 0.37 x10^3/uL; BANDS%(MANUAL) 3 % (0-7); BASOS#(MANUAL) 0.12 x10^3/uL (0-0.1); BASOS% (MANUAL) 1 % (0-1); EOS#(MANUAL) 0.24 x10^3/uL (0.0-0.4); EOS% (MANUAL) 2 % (1-7); HYPOCHROMIA 1+; LYMPH#(MANUAL) 0.61 x10^3/uL (1-3.4); LYMPHS% (MANUAL) 5 % (22-44); METAMYELOCYTES# (MANUAL) 0.12 x10^3/uL (0-0); METAMYELOCYTES% (MANUAL) 1 % (0-1); MONOS#(MANUAL) 0.24 x10^3/uL (0.3-2.7); MONOS% (MANUAL) 2 % (2-9); OVALOCYTES 1+; POLYCHROMASIA 1+; SEG#(MANUAL) 10.49 x10^3/uL (1.8-6.8); SEGS% (MANUAL) 86 % (42-75)
[2021-01-20 06:07] LABS: <PLATELET ESTIMATE> ADEQUATE; <PLT MORPHOLOGY> NORMAL PLT MORPH
[2021-01-20 06:08] LABS: TARGET CELLS 1+
[2021-01-20 07:21] VITALS: BP 139/73
[2021-01-20] MEDS: TAMSULOSIN 0.4 MG CAP.ER.24H PO SCH (09:13)
[2021-01-20] MEDS: SENNA/DOCUSATE TABLET PO SCH (09:13)
[2021-01-20] MEDS: THIAMINE 100MG TABLET PO SCH (09:13)
[2021-01-20] MEDS: SODIUM CHLORIDE FLUSH 10ML SYR IVF SCH ×2 (09:14→19:49)
[2021-01-20 13:19] VITALS: BP 131/71
[2021-01-20 18:37] VITALS: BP 137/76
[2021-01-21 00:38] VITALS: BP 145/80
[2021-01-21] MEDS: CEFAZOLIN 2,000 MG in SODIUM CHLORIDE 0.9% 50 ML IV SCH ×2 (05:19→13:29)
[2021-01-21 05:56] LABS: ANION GAP 3 mmol/L (5-15); CALCIUM 8.6 mg/dL (8.5-10.1); CHLORIDE 108 mmol/L (98-107)
[2021-01-21 05:58] LABS: MEAN CORPUSCULAR HEMOGLOBIN 31.4 pg (27.5-34.5); MEAN CORPUSCULAR HGB CONC 33.9 g/dL (33.2-36.2); MEAN PLATELET VOLUME 9.6 fL (7.4-10.4); PLATELET COUNT 346 x10^3/uL (130-400); RED BLOOD COUNT 2.76 x10^6/uL (4.38-5.82); RED CELL DISTRIBUTION WIDTH 15.6 % (9.4-14.8)
[2021-01-21 05:59] LABS: CREATININE 1.13 mg/dL (0.7-1.3)
[2021-01-21 06:27] LABS: SEGS% (MANUAL) 83 % (42-75)
[2021-01-21 06:28] LABS: <PLATELET ESTIMATE> ADEQUATE; <PLT MORPHOLOGY> NORMAL PLT MORPH; BANDS%(MANUAL) 1 % (0-7); LYMPHS% (MANUAL) 8 % (22-44); METAMYELOCYTES% (MANUAL) 1 % (0-1); MONOS% (MANUAL) 6 % (2-9); MYELOCYTES% (MANUAL) 1 % (0-0)
[2021-01-21 06:29] LABS: ANISOCYTOSIS 1+; HYPOCHROMIA 1+
[2021-01-21 07:23] VITALS: BP 148/84
[2021-01-21] MEDS: SODIUM CHLORIDE FLUSH 10ML SYR IVF SCH ×2 (08:40→21:00)
[2021-01-21] MEDS: THIAMINE 100MG TABLET PO SCH (08:41)
[2021-01-21] MEDS: SENNA/DOCUSATE TABLET PO SCH (08:41)
[2021-01-21] MEDS: TAMSULOSIN 0.4 MG CAP.ER.24H PO SCH (08:41)
[2021-01-21 12:47] VITALS: BP 135/72
[2021-01-21 13:47] LABS: OCCULT BLOOD POSITIVE (NEGATIVE)
[2021-01-21] MEDS ORDERED: CHLORHEXIDINE 15 ML UDC PO ONE (15:00)
[2021-01-21] MEDS ORDERED: CHLORHEXIDINE 15 ML UDC ONE (15:03)
[2021-01-21] MEDS ORDERED: EPINEPHRINE 1 MG/ML, 1ML ONE (15:50)
[2021-01-21] MEDS ORDERED: BUPIVACAINE/PF 0.25% ONE (15:50)
[2021-01-21] MEDS ORDERED: BUPIVACAINE/PF 0.5% ONE (15:50)
[2021-01-21] MEDS ORDERED: THROMBIN 5,000 UNIT VIAL TP ONE (15:50)
[2021-01-21] MEDS ORDERED: BACITRACIN 50,000 UNIT ONE (15:50)
[2021-01-21] MEDS ORDERED: VANCOMYCIN 1,000 MG ONE (15:50)
[2021-01-21] MEDS ORDERED: BACITRACIN OINT 500U/GM, 15 GM ONE (15:52)
[2021-01-21] MEDS ORDERED: FENTANYL PF 250 MCG/5ML ONE (16:33)
[2021-01-21] MEDS ORDERED: CEFAZOLIN 1,000 MG ONE (16:40)
[2021-01-21] MEDS ORDERED: DEXAMETHASONE 4 MG/ML, 5ML ONE (16:40)
[2021-01-21] MEDS ORDERED: SUCCINYLCHOLINE 20 MG/ML, 10ML ONE (16:40)
[2021-01-21] MEDS ORDERED: PROPOFOL 10 MG/ML, 20ML ONE (16:40)
[2021-01-21] MEDS ORDERED: FENTANYL PF 100 MCG/2ML ONE (19:23)
[2021-01-21] MEDS ORDERED: OXYcodone 5 MG/5 ML ORAL.SOL UDC ONE (19:23)
[2021-01-21] MEDS ORDERED: ACETAMINOPHEN 650 MG/20.3 ML UDC ONE (19:24)
[2021-01-21] MEDS ORDERED: PHARMACY MAY ADJ FOR RENAL FX MC PRN (19:30)
[2021-01-21] MEDS ORDERED: PROMETHAZINE 25 MG/ML, 1ML IV PRN (19:30)
[2021-01-21] MEDS ORDERED: MEPERIDINE/PF 25MG/0.5ML IVPush PRN (19:30)
[2021-01-21] MEDS ORDERED: DIPHENHYDRAMINE 50 MG CAPSULE PO PRN (19:30)
[2021-01-21] MEDS ORDERED: HYDROmorphone 1 MG/ML, 1ML INJ IV PRN (19:30)
[2021-01-21] MEDS ORDERED: LABETALOL 5MG/ML, 20ML IV PRN (19:30)
[2021-01-21] MEDS ORDERED: ONDANSETRON 2MG/ML, 2ML IVPush PRN ×2 (19:30)
[2021-01-21] MEDS ORDERED: DIAZEPAM 5 MG/ML, 2ML IV PRN ×2 (19:30)
[2021-01-21] MEDS ORDERED: DIPHENHYDRAMINE 50 MG/ML, 1ML IVPush PRN (19:30)
[2021-01-21] MEDS ORDERED: DIPHENHYDRAMINE 50 MG/ML, 1ML IM PRN (19:30)
[2021-01-21] MEDS ORDERED: METOCLOPRAMIDE 5 MG/ML, 2ML IV PRN (19:30)
[2021-01-21] MEDS ORDERED: FENTANYL PF 100 MCG/2ML IV PRN (19:30)
[2021-01-21] MEDS ORDERED: OXYcodone 5 MG/5 ML ORAL.SOL UDC PO PRN (19:30)
[2021-01-21] MEDS ORDERED: KETOROLAC 30 MG/1 ML IV PRN (19:30)
[2021-01-21] MEDS ORDERED: METHOCARBAMOL 1,000 MG in DEXTROSE 5% 100 ML IV ONE (19:30)
[2021-01-21] MEDS ORDERED: METHOCARBAMOL 1000MG/10 ML IV ONE (19:30)
[2021-01-21] MEDS ORDERED: ALBUTEROL SULFATE 2.5 MG/3 ML NPPB PRN (19:30)
[2021-01-21] MEDS ORDERED: hydrALAzine 20 MG/ML, 1ML IV PRN (19:30)
[2021-01-21] MEDS: ACETAMINOPHEN 325 MG TABLET PO PRN (19:47)
[2021-01-22 00:04] VITALS: BP 124/64
[2021-01-22] MEDS: CEFAZOLIN 2,000 MG in SODIUM CHLORIDE 0.9% 50 ML IV SCH ×3 (00:12→16:01)
[2021-01-22 03:23] VITALS: BP 114/62
[2021-01-22] MEDS: NS + 20MEQ KCL 1,000 ML IV SCH ×2 (03:27→15:22)
[2021-01-22] MEDS ORDERED: METHOCARBAMOL 750 MG in DEXTROSE 5% 100 ML IV PRN (03:30)
[2021-01-22] MEDS: ACETAMINOPHEN 325 MG TABLET PO PRN (03:32)
[2021-01-22] MEDS: ENOXAPARIN 40 MG/0.4 ML SQ SCH (06:13)
[2021-01-22 06:22] LABS: BASOPHILS % (AUTO) 1 % (0-1); EOSINOPHILS % (AUTO) 1 % (1-7); LYMPHOCYTES % (AUTO) 10 % (22-44); MEAN CORPUSCULAR HEMOGLOBIN 30.9 pg (27.5-34.5); MEAN CORPUSCULAR HGB CONC 33.2 g/dL (33.2-36.2); MONOCYTES % (AUTO) 11 % (2-9); NEUTROPHILS % (AUTO) 78 % (42-75); PLATELET COUNT 351 x10^3/uL (130-400); RED BLOOD COUNT 2.47 x10^6/uL (4.38-5.82); RED CELL DISTRIBUTION WIDTH 15.6 % (9.4-14.8)
[2021-01-22 06:28] VITALS: BP 127/70
[2021-01-22 06:29] LABS: ANION GAP 4 mmol/L (5-15); CALCIUM 8.4 mg/dL (8.5-10.1); CHLORIDE 106 mmol/L (98-107); CREATININE 0.98 mg/dL (0.7-1.3)
[2021-01-22] MEDS ORDERED: POTASSIUM CHLORIDE 20 MEQ TAB.ER.PRT PO ONE (07:30)
[2021-01-22] MEDS: TAMSULOSIN 0.4 MG CAP.ER.24H PO SCH (08:54)
[2021-01-22] MEDS: SODIUM CHLORIDE FLUSH 10ML SYR IVF SCH ×2 (08:54→21:00)
[2021-01-22] MEDS: THIAMINE 100MG TABLET PO SCH (08:54)
[2021-01-22] MEDS: SENNA/DOCUSATE TABLET PO SCH (08:54)
[2021-01-22 12:04] VITALS: BP 132/70
[2021-01-22 19:39] VITALS: BP 134/89
[2021-01-22] MEDS: HYDROcodone/APAP 5/325 TABLET PO PRN (22:04)
[2021-01-23] MEDS: CEFAZOLIN 2,000 MG in SODIUM CHLORIDE 0.9% 50 ML IV SCH ×3 (00:06→17:16)
[2021-01-23 00:56] VITALS: BP 144/76
[2021-01-23 06:11] LABS: BASOPHILS % (AUTO) 0 % (0-1); EOSINOPHILS % (AUTO) 1 % (1-7); LYMPHOCYTES % (AUTO) 10 % (22-44); MEAN CORPUSCULAR HGB CONC 33.1 g/dL (33.2-36.2); MEAN PLATELET VOLUME 9.1 fL (7.4-10.4); MONOCYTES % (AUTO) 12 % (2-9); NEUTROPHILS % (AUTO) 77 % (42-75); PLATELET COUNT 383 x10^3/uL (130-400); RED BLOOD COUNT 2.59 x10^6/uL (4.38-5.82); RED CELL DISTRIBUTION WIDTH 16.2 % (9.4-14.8)
[2021-01-23 06:22] LABS: ANION GAP 3 mmol/L (5-15); CALCIUM 8.2 mg/dL (8.5-10.1); CHLORIDE 110 mmol/L (98-107); CREATININE 0.97 mg/dL (0.7-1.3)
[2021-01-23 06:53] VITALS: BP 136/72
[2021-01-23] MEDS: ENOXAPARIN 40 MG/0.4 ML SQ SCH (07:33)
[2021-01-23] MEDS: SODIUM CHLORIDE FLUSH 10ML SYR IVF SCH ×2 (09:00→20:48)
[2021-01-23] MEDS: LISINOPRIL 5 MG TABLET PO SCH (09:31)
[2021-01-23] MEDS: SENNA/DOCUSATE TABLET PO SCH (09:31)
[2021-01-23] MEDS: TAMSULOSIN 0.4 MG CAP.ER.24H PO SCH (09:31)
[2021-01-23] MEDS: THIAMINE 100MG TABLET PO SCH (09:31)
[2021-01-23] MEDS: FUROSEMIDE 20 MG TABLET PO SCH (09:32)
[2021-01-23] MEDS: HYDROcodone/APAP 5/325 TABLET PO PRN ×4 (09:33→23:07)
[2021-01-23 12:18] VITALS: BP 122/69
[2021-01-23] MEDS: NS + 20MEQ KCL 1,000 ML IV SCH (13:05)
[2021-01-23 20:16] VITALS: BP 150/84
[2021-01-24] MEDS: CEFAZOLIN 2,000 MG in SODIUM CHLORIDE 0.9% 50 ML IV SCH ×3 (01:52→17:22)
[2021-01-24 02:24] VITALS: BP 143/77
[2021-01-24] MEDS: HYDROcodone/APAP 5/325 TABLET PO PRN ×3 (03:40→20:05)
[2021-01-24 05:13] LABS: ANION GAP 4 mmol/L (5-15); CALCIUM 8.1 mg/dL (8.5-10.1); CHLORIDE 111 mmol/L (98-107)
[2021-01-24 05:17] LABS: BASOPHILS % (AUTO) 1 % (0-1); EOSINOPHILS % (AUTO) 1 % (1-7); LYMPHOCYTES % (AUTO) 12 % (22-44); MEAN CORPUSCULAR HEMOGLOBIN 31.8 pg (27.5-34.5); MEAN CORPUSCULAR HGB CONC 34.1 g/dL (33.2-36.2); MEAN PLATELET VOLUME 8.9 fL (7.4-10.4); MONOCYTES % (AUTO) 12 % (2-9); NEUTROPHILS % (AUTO) 74 % (42-75); PLATELET COUNT 405 x10^3/uL (130-400); RED BLOOD COUNT 2.49 x10^6/uL (4.38-5.82); RED CELL DISTRIBUTION WIDTH 15.7 % (9.4-14.8)
[2021-01-24] MEDS: ENOXAPARIN 40 MG/0.4 ML SQ SCH (06:04)
[2021-01-24 06:29] VITALS: BP 136/73
[2021-01-24] MEDS: LISINOPRIL 5 MG TABLET PO SCH (08:23)
[2021-01-24] MEDS: NS + 20MEQ KCL 1,000 ML IV SCH (08:23)
[2021-01-24] MEDS: SENNA/DOCUSATE TABLET PO SCH (08:23)
[2021-01-24] MEDS: TAMSULOSIN 0.4 MG CAP.ER.24H PO SCH (08:24)
[2021-01-24] MEDS: THIAMINE 100MG TABLET PO SCH (08:24)
[2021-01-24] MEDS: FUROSEMIDE 20 MG TABLET PO SCH (08:24)
[2021-01-24] MEDS: SODIUM CHLORIDE FLUSH 10ML SYR IVF SCH ×2 (08:25→20:05)
[2021-01-24 14:20] VITALS: BP 129/74
[2021-01-24 19:43] VITALS: BP 131/69
[2021-01-25 00:49] VITALS: BP 149/79
[2021-01-25] MEDS: CEFAZOLIN 2,000 MG in SODIUM CHLORIDE 0.9% 50 ML IV SCH ×3 (01:35→17:42)
[2021-01-25] MEDS: NS + 20MEQ KCL 1,000 ML IV SCH (05:35)
[2021-01-25] MEDS: ENOXAPARIN 40 MG/0.4 ML SQ SCH (05:37)
[2021-01-25 06:03] LABS: BASOPHILS % (AUTO) 1 % (0-1); EOSINOPHILS % (AUTO) 0 % (1-7); LYMPHOCYTES % (AUTO) 9 % (22-44); MEAN CORPUSCULAR HEMOGLOBIN 31.1 pg (27.5-34.5); MEAN CORPUSCULAR HGB CONC 33.6 g/dL (33.2-36.2); MEAN PLATELET VOLUME 8.6 fL (7.4-10.4); MONOCYTES % (AUTO) 13 % (2-9); NEUTROPHILS % (AUTO) 78 % (42-75); PLATELET COUNT 426 x10^3/uL (130-400); RED CELL DISTRIBUTION WIDTH 15.5 % (9.4-14.8)
[2021-01-25 06:17] LABS: ANION GAP 5 mmol/L (5-15); CALCIUM 8.2 mg/dL (8.5-10.1); CHLORIDE 111 mmol/L (98-107)
[2021-01-25 06:24] LABS: CREATININE 1.19 mg/dL (0.7-1.3)
[2021-01-25 07:45] VITALS: BP 133/81
[2021-01-25] MEDS: HYDROcodone/APAP 5/325 TABLET PO PRN (08:02)
[2021-01-25] MEDS: LISINOPRIL 5 MG TABLET PO SCH (08:03)
[2021-01-25] MEDS: FUROSEMIDE 20 MG TABLET PO SCH (08:03)
[2021-01-25] MEDS: THIAMINE 100MG TABLET PO SCH (08:03)
[2021-01-25] MEDS: TAMSULOSIN 0.4 MG CAP.ER.24H PO SCH (08:03)
[2021-01-25] MEDS: SENNA/DOCUSATE TABLET PO SCH (08:03)
[2021-01-25] MEDS: SODIUM CHLORIDE FLUSH 10ML SYR IVF SCH ×2 (08:09→20:33)
[2021-01-25 13:00] VITALS: BP 144/77
[2021-01-25 18:33] VITALS: BP 121/65
[2021-01-26 01:12] VITALS: BP 122/64
[2021-01-26] MEDS: CEFAZOLIN 2,000 MG in SODIUM CHLORIDE 0.9% 50 ML IV SCH ×3 (01:33→18:12)
[2021-01-26] MEDS: ENOXAPARIN 40 MG/0.4 ML SQ SCH (05:09)
[2021-01-26 05:37] LABS: CHLORIDE 108 mmol/L (98-107)
[2021-01-26 05:38] LABS: MEAN CORPUSCULAR HEMOGLOBIN 30.4 pg (27.5-34.5); MEAN CORPUSCULAR HGB CONC 32.8 g/dL (33.2-36.2); MEAN PLATELET VOLUME 8.9 fL (7.4-10.4); PLATELET COUNT 378 x10^3/uL (130-400); RED BLOOD COUNT 2.48 x10^6/uL (4.38-5.82); RED CELL DISTRIBUTION WIDTH 14.8 % (9.4-14.8)
[2021-01-26 05:42] LABS: ANION GAP 5 mmol/L (5-15); CALCIUM 8.2 mg/dL (8.5-10.1); CREATININE 1.18 mg/dL (0.7-1.3)
[2021-01-26 06:16] LABS: BAND#(MANUAL) 0.38 x10^3/uL; BANDS%(MANUAL) 4 % (0-7); LYMPH#(MANUAL) 0.58 x10^3/uL (1-3.4); LYMPHS% (MANUAL) 6 % (22-44); METAMYELOCYTES% (MANUAL) 1 % (0-1); MONOS#(MANUAL) 0.86 x10^3/uL (0.3-2.7); MONOS% (MANUAL) 9 % (2-9); MYELOCYTES% (MANUAL) 1 % (0-0); SEG#(MANUAL) 7.58 x10^3/uL (1.8-6.8); SEGS% (MANUAL) 79 % (42-75)
[2021-01-26 06:17] LABS: ANISOCYTOSIS 1+; POLYCHROMASIA 1+
[2021-01-26 06:18] LABS: <PLATELET ESTIMATE> ADEQUATE; <PLT MORPHOLOGY> NORMAL PLT MORPH
[2021-01-26 07:30] VITALS: BP 128/73
[2021-01-26] MEDS: LISINOPRIL 5 MG TABLET PO SCH (08:47)
[2021-01-26] MEDS: THIAMINE 100MG TABLET PO SCH (08:48)
[2021-01-26] MEDS: FUROSEMIDE 20 MG TABLET PO SCH (08:48)
[2021-01-26] MEDS: POTASSIUM CHLORIDE 20 MEQ TAB.ER.PRT PO SCH (08:48)
[2021-01-26] MEDS: SENNA/DOCUSATE TABLET PO SCH (08:48)
[2021-01-26] MEDS: TAMSULOSIN 0.4 MG CAP.ER.24H PO SCH (08:48)
[2021-01-26] MEDS: SODIUM CHLORIDE FLUSH 10ML SYR IVF SCH ×2 (08:51→21:04)
[2021-01-26] MEDS: HYDROcodone/APAP 5/325 TABLET PO PRN ×2 (09:05→23:34)
[2021-01-26 13:30] VITALS: BP 125/69
[2021-01-26 18:29] VITALS: BP 121/79
[2021-01-27 01:04] VITALS: BP 146/73
[2021-01-27] MEDS: CEFAZOLIN 2,000 MG in SODIUM CHLORIDE 0.9% 50 ML IV SCH ×3 (01:37→17:38)
[2021-01-27] MEDS: ENOXAPARIN 40 MG/0.4 ML SQ SCH (06:08)
[2021-01-27 06:28] LABS: BASOPHILS % (AUTO) 0 % (0-1); EOSINOPHILS % (AUTO) 1 % (1-7); LYMPHOCYTES % (AUTO) 13 % (22-44); MEAN CORPUSCULAR HEMOGLOBIN 31.4 pg (27.5-34.5); MEAN CORPUSCULAR HGB CONC 33.7 g/dL (33.2-36.2); MEAN PLATELET VOLUME 8.6 fL (7.4-10.4); MONOCYTES % (AUTO) 13 % (2-9); NEUTROPHILS % (AUTO) 72 % (42-75); PLATELET COUNT 382 x10^3/uL (130-400); RED BLOOD COUNT 2.48 x10^6/uL (4.38-5.82); RED CELL DISTRIBUTION WIDTH 15.2 % (9.4-14.8)
[2021-01-27 06:29] LABS: HCT (SEDRATE) 23.2 % (39.2-51.8)
[2021-01-27 06:57] LABS: CALCIUM 8.5 mg/dL (8.5-10.1)
[2021-01-27 07:00] VITALS: BP 142/77
[2021-01-27 07:05] LABS: ANION GAP 6 mmol/L (5-15); CHLORIDE 107 mmol/L (98-107)
[2021-01-27] MEDS: FUROSEMIDE 20 MG TABLET PO SCH (07:53)
[2021-01-27] MEDS: LISINOPRIL 5 MG TABLET PO SCH (07:53)
[2021-01-27] MEDS: TAMSULOSIN 0.4 MG CAP.ER.24H PO SCH (07:53)
[2021-01-27] MEDS: THIAMINE 100MG TABLET PO SCH (07:53)
[2021-01-27] MEDS: SENNA/DOCUSATE TABLET PO SCH (07:53)
[2021-01-27] MEDS: POTASSIUM CHLORIDE 20 MEQ TAB.ER.PRT PO SCH (07:53)
[2021-01-27] MEDS: SODIUM CHLORIDE FLUSH 10ML SYR IVF SCH ×2 (07:54→20:43)
[2021-01-27] MEDS: HYDROcodone/APAP 5/325 TABLET PO PRN ×2 (07:54→20:43)
[2021-01-27 14:24] VITALS: BP 135/68
[2021-01-27 18:31] VITALS: BP 134/71
[2021-01-28] MEDS: CEFAZOLIN 2,000 MG in SODIUM CHLORIDE 0.9% 50 ML IV SCH ×2 (01:39→09:32)
[2021-01-28 02:02] VITALS: BP 119/69
[2021-01-28 05:48] LABS: ANION GAP 5 mmol/L (5-15); CALCIUM 8.6 mg/dL (8.5-10.1); CHLORIDE 104 mmol/L (98-107)
[2021-01-28 05:49] LABS: CREATININE 1.26 mg/dL (0.7-1.3)
[2021-01-28 05:56] LABS: BASOPHILS % (AUTO) 1 % (0-1); EOSINOPHILS % (AUTO) 1 % (1-7); LYMPHOCYTES % (AUTO) 11 % (22-44); MEAN CORPUSCULAR HEMOGLOBIN 30.9 pg (27.5-34.5); MEAN CORPUSCULAR HGB CONC 33.4 g/dL (33.2-36.2); MEAN PLATELET VOLUME 8.8 fL (7.4-10.4); MONOCYTES % (AUTO) 13 % (2-9); NEUTROPHILS % (AUTO) 74 % (42-75); PLATELET COUNT 383 x10^3/uL (130-400)
[2021-01-28] MEDS: ENOXAPARIN 40 MG/0.4 ML SQ SCH (06:25)
[2021-01-28 07:49] VITALS: BP 98/60
[2021-01-28] MEDS: SENNA/DOCUSATE TABLET PO SCH (07:52)
[2021-01-28] MEDS: TAMSULOSIN 0.4 MG CAP.ER.24H PO SCH (07:53)
[2021-01-28] MEDS: LISINOPRIL 5 MG TABLET PO SCH (07:53)
[2021-01-28] MEDS: THIAMINE 100MG TABLET PO SCH (07:53)
[2021-01-28] MEDS: FUROSEMIDE 20 MG TABLET PO SCH (07:53)
[2021-01-28] MEDS: SODIUM CHLORIDE FLUSH 10ML SYR IVF SCH (07:53)
[2021-01-28] MEDS: POTASSIUM CHLORIDE 20 MEQ TAB.ER.PRT PO SCH (07:53)
[2021-01-28] MEDS: ACETAMINOPHEN 325 MG TABLET PO PRN (09:37)
[2021-01-28] MEDS ORDERED: ONDA4TAB13 PO (11:26)
[2021-01-28] MEDS ORDERED: FURO20TA3 PO (11:26)
[2021-01-28] MEDS ORDERED: ENOX40SY4 SQ (11:26)
[2021-01-28] MEDS ORDERED: POTA-143 PO (11:26)
[2021-01-28] MEDS ORDERED: HYDR-2214 PO (11:26)
[2021-01-28] MEDS ORDERED: THIA100T67 PO (11:26)
[2021-01-28] MEDS ORDERED: CEFA2PLA10 IVPB (11:26)
[2021-01-28] MEDS ORDERED: LISI5TAB7 PO (11:26)
[2021-01-28] MEDS ORDERED: CEFA2PLA9 IVPB (11:26)
[2021-01-28 13:41] VITALS: BP 123/67
== END 2021-01-28 14:00 | DRG 853 ==
LOC: ED 13:59 → EDIP 16:13 → 4EST 18:49 → CCU 01-16 10:46 → 5SO 01-19 12:13 → 3N 01-20 11:56 → 4NE 01-21 20:27
PROVIDERS: ADMIT Family Medicine; ATTEND Hospitalist
PROC: 0T9B70Z Drainage of Bladder with Drainage Device, Via Natural or Artificial Opening (ICD-10-PCS; 2021-01-11)
PROC: 00NY0ZZ Release Lumbar Spinal Cord, Open Approach (ICD-10-PCS; 2021-01-16)
PROC: 01NB0ZZ Release Lumbar Nerve, Open Approach (ICD-10-PCS; principal; 2021-01-16 06:30)
PROC: 30233N1 Transfusion of Nonautologous Red Blood Cells into Peripheral Vein, Percutaneous Approach (ICD-10-PCS; 2021-01-17)
PROC: 02HV33Z Insertion of Infusion Device into Superior Vena Cava, Percutaneous Approach (ICD-10-PCS; 2021-01-17)
PROC: B548ZZA Ultrasonography of Superior Vena Cava, Guidance (ICD-10-PCS; 2021-01-17)
PROC: 0RG2071 Fusion of 2 or more Cervical Vertebral Joints with Autologous Tissue Substitute, Posterior Approach, Posterior Column, Open Approach (ICD-10-PCS; 2021-01-21)
PROC: 00NW0ZZ Release Cervical Spinal Cord, Open Approach (ICD-10-PCS; 2021-01-21)
PROC: 01N10ZZ Release Cervical Nerve, Open Approach (ICD-10-PCS; 2021-01-21)
PROC: 4A11X4G Monitoring of Peripheral Nervous Electrical Activity, Intraoperative, External Approach (ICD-10-PCS; 2021-01-21)
DX: A41.59 Other Gram-negative sepsis (principal); G93.41 Metabolic encephalopathy; G06.1 Intraspinal abscess and granuloma; K68.12 Psoas muscle abscess; I42.9 Cardiomyopathy, unspecified; I50.42 Chronic combined systolic (congestive) and diastolic (congestive) heart failure; I82.401 Acute embolism and thrombosis of unspecified deep veins of right lower extremity; I13.0 Hypertensive heart and chronic kidney disease with heart failure and stage 1 through stage 4 chronic kidney disease, or unspecified chronic kidney disease; M46.26 Osteomyelitis of vertebra, lumbar region; M47.12 Other spondylosis with myelopathy, cervical region; N17.9 Acute kidney failure, unspecified; N39.0 Urinary tract infection, site not specified; E16.2 Hypoglycemia, unspecified; B96.1 Klebsiella pneumoniae [K. pneumoniae] as the cause of diseases classified elsewhere; C44.91 Basal cell carcinoma of skin, unspecified; D64.9 Anemia, unspecified; D69.6 Thrombocytopenia, unspecified; E03.8 Other specified hypothyroidism; K80.20 Calculus of gallbladder without cholecystitis without obstruction; Z20.822 Contact with and (suspected) exposure to COVID-19; E78.5 Hyperlipidemia, unspecified; F17.200 Nicotine dependence, unspecified, uncomplicated; L22 Diaper dermatitis; L72.3 Sebaceous cyst; M46.46 Discitis, unspecified, lumbar region; M48.02 Spinal stenosis, cervical region; M48.061 Spinal stenosis, lumbar region without neurogenic claudication; N18.30 Chronic kidney disease, stage 3 unspecified; N40.0 Benign prostatic hyperplasia without lower urinary tract symptoms; R32 Unspecified urinary incontinence; R65.20 Severe sepsis without septic shock; R53.81 Other malaise; R68.0 Hypothermia, not associated with low environmental temperature; Z79.01 Long term (current) use of anticoagulants; Z85.828 Personal history of other malignant neoplasm of skin; Z86.73 Personal history of transient ischemic attack (TIA), and cerebral infarction without residual deficits; Z87.442 Personal history of urinary calculi; Z98.1 Arthrodesis status; Z95.828 Presence of other vascular implants and grafts; Z88.8 Allergy status to other drugs, medicaments and biological substances
CPT/HCPCS: 36415; 36600; 72040; 72100; 96374; 99285; J7042; S0020; 36573; 70450; 70551; 70553; 71045; 72156; 72157; 72158; 74177; 76536; 76700; 80048; 80053; 80307; 80320; 81001; 82140; 82272; 82533; 82803; 82962; 83036; 83735; 84100; 84439; 84443; 84484; 85025; 85610; 85651; 85730; 86140; 86850; 86900; 86923; 87040; 87070; 87075; 87077; 87081; 87086; 87102; 87186; 87205; 87635; 93005; 93306; 93308; 95819; 95938; 95941; C1713; C1729; G0378; J0171; J0295; J0461; J0690; J0696; J1100; J1170; J1650; J2250; J2405; J2704; J2710; J3010; J3370; J3411; J3480; J7070; Q9967; 92523-GN; A9575; C1751; C1762; G0480; J0330; J0834; J2310; J2370; J2800; J7050; P9016